=== PATIENT | male | born 1965 | race Caucasian/White ===

== ENCOUNTER 2017-10-29 07:43 | Emergency (ER) | payer OTHER ==
[~2017-10-29] VITALS: Ht 167.6 cm; Wt 104.5 kg
[~2017-10-29 07:43] MED LIST: ALBUTEROL SULF8.5 GM IH; ALPRAZOLAM0.25 MG PO; ATIVAN0.5 MG PO; ATORVASTATIN 10 MG T; LOSARTAN POTASS25 MG; NUVIGIL150 MG; OMEPRAZOLE40 M1; PRISTIQ100 MG; PRISTIQ100 MG PO; SINGULAIR10 MG; SINGULAIR10 MG PO
[2017-10-29] MEDS ORDERED: INDERAL10 MG PO (07:57)
[2017-10-29] MEDS ORDERED: MOTRIN600 MG PO (09:38)
[2017-10-29 09:57] VITALS: BP 117/80
== END 2017-10-29 09:57 | disposition home or self-care (01) ==
LOC: EME 07:43
PROC: 0HQGXZZ Repair Left Hand Skin, External Approach (ICD-10-PCS; principal; 2017-10-29)
DX: S61.213A Laceration without foreign body of left middle finger without damage to nail, initial encounter (principal); S60.032A Contusion of left middle finger without damage to nail, initial encounter; W23.0XXA Caught, crushed, jammed, or pinched between moving objects, initial encounter; Y99.0 Civilian activity done for income or pay; Y92.818 Other transport vehicle as the place of occurrence of the external cause; I10 Essential (primary) hypertension
CPT/HCPCS: 73140; 99281; 99283